=== PATIENT | female | born 1995 | race Caucasian/White ===

== ENCOUNTER 2021-09-25 16:45 | Observation (INO) | payer BC ==
[2021-09-25] MEDS ORDERED: Zosyn 3.375 GM Vial 3.375 GM in Sodium Chloride 100ML MINI-BAG PLUS 100 ML IV ONE (17:13)
[2021-09-25] MEDS ORDERED: MORPHINE SULFATE 4 MG INJ IV ONE (17:13)
[2021-09-25] MEDS ORDERED: Sodium Chloride 0.9% 1000 ML 1,000 ML IV STA (17:13)
[2021-09-25] MEDS ORDERED: Zofran 4 MG/2 ML VIAL IV ONE (17:13)
--- NOTE | 2021-09-25 17:16 | ERPHSYRPT ---
- History of Present Illness Time Seen by Provider: 09/25/21 17:13 Historian: patient Exam Limitations: no limitations Patient Subjective Stated Complaint: here for abd pain to right side since last night, had a ct scan today and dx with appenditisis. nausea and vomiting Triage Nursing Assessment: pt alert, resp easy, skin w/d/p. abd soft but tender, face mask in palce Physician History: 26 years old female presented in the ER with chief complaint of right lower quadrant pain since yesterday evening with associated multiple episodes of nonprojectile, nonbilious vomiting without hematemesis. She was seen at [facility] ER with a negative x-rays and later on patient primary care. CT abdomen pelvis with contrast which showed enlarged appendix with fluid around suggesting acute appendicitis and patient is recommended to be reported in the ER. Denies any fever or chills. Timing/Duration: yesterday, constant, gradual onset, worse Activities at Onset: activity, rest Quality: sharpness Abdominal Pain Onset Location: RUQ, RLQ, flank Severity of Pain-Max: moderate Severity of Pain-Current: moderate Modifying Factors: Worsens With: movement, palpation, position Associated Symptoms: nausea, vomiting Previous symptoms: no prior history Allergies/Adverse Reactions: No Known Drug Allergies Allergy (Unverified 09/25/21 17:02) Home Medications: ALPRAZolam [Alprazolam] 1 ea DAILY 09/25/21 [History] Desvenlafaxine Succinate [Desvenlafaxine Succinate ER] 1 ea DAILY 09/25/21 [History] Hx Pneumococcal Vaccination/Date Given: No Immunizations Up to Date: Yes Travel Risk - International Travel Have you traveled outside of the country in past 3 weeks: No - Coronavirus Screening Are you exhibiting any of the following symptoms?: No Close contact with a COVID-19 positive Pt in past 14-21 Days: No - Vaccine Status Have you recieved a Covid-19 vaccination: No - Review of Systems Constitutional: No Symptoms Eyes: No Symptoms Ears, Nose, & Throat: No Symptoms Respiratory: No Symptoms Cardiac: No Symptoms Abdominal/Gastrointestinal: Abdominal Pain, Nausea, Vomiting Genitourinary Symptoms: No Symptoms Musculoskeletal: No Symptoms Skin: No Symptoms Neurological: No Symptoms Psychological: Anxiety, Depression Endocrine: No Symptoms Hematologic/Lymphatic: No Symptoms Immunological/Allergic: No Symptoms - Past Medical History Pertinent Past Medical History: No - Past Surgical History Past Surgical History: No - Social History Smoking Status: Never smoker Exposure to second hand smoke: No Drug Use: none Patient Lives Alone: No - Female History Hx Last Menstrual Period: nov Hx Now: No - Nursing Vital Signs Nursing Vital Signs: Initial Vital Signs Temperature 97.2 F 09/25/21 17:02 Pulse Rate 71 09/25/21 17:02 Respiratory Rate 18 09/25/21 17:02 Blood Pressure 132/84 09/25/21 17:02 O2 Sat by Pulse Oximetry 98 09/25/21 17:02 Pain Scale Pain Intensity 10 - Physical Exam General Appearance: no apparent distress, alert Eye Exam: PERRL/EOMI Ears, Nose, Throat Exam: normal ENT inspection, TMs normal, pharynx normal, moist mucous membranes Neck Exam: normal inspection, supple, full range of motion Respiratory Exam: normal breath sounds, lungs clear Cardiovascular Exam: regular rate/rhythm, normal heart sounds Gastrointestinal/Abdomen Exam: soft, tenderness (Right lower quadrant/right flank and right upper quadrant), guarding (Right lower quadrant), rebound (Right lower quadrant ), other (Positive obturator sign), No normal bowel sounds Back Exam: normal inspection, normal range of motion Extremity Exam: normal inspection, normal range of motion Neurologic Exam: alert, oriented x 3, cooperative Skin Exam: normal color SpO2 Interpretation: normal SpO2: 98 O2 Delivery: Room Air Ordered Tests: Active Orders 24 hr Category Date Time Status IV Insertion STAT Care 09/25/21 17:13 Active NPO (ED) STAT Care 09/25/21 17:13 Active Medication Summary Generic Name Dose Route Start Last Admin Trade Name Freq PRN Reason Stop Dose Admin Sodium Chloride 1,000 mls @ 999 mls/hr 09/25/21 17:13 Sodium Chloride 0.9% 1000 Ml IV 09/25/21 18:13 .[id number] STA Discontinued Medications Generic Name Dose Route Start Last Admin Trade Name Freq PRN Reason Stop Dose Admin Piperacillin Sod/Tazobactam 100 mls @ 200 mls/hr 09/25/21 17:13 Sod 3.375 gm/ Sodium Chloride IV 09/25/21 17:42 STAT ONE Morphine Sulfate 4 mg 09/25/21 17:13 Morphine Sulfate 4 Mg/Ml Injection IV 09/25/21 17:14 STAT ONE Ondansetron HCl 4 mg 09/25/21 17:13 Ondansetron Hcl 4 Mg/2 Ml Vial IV 09/25/21 17:14 STAT ONE - Progress Progress: unchanged Progress Note: 09/25/21 17:50 26 years old is evaluated for right lower quadrant pain. I have obtained imaging and blood work from the [facility] which show a white count of 11, CT findings suggesting acute appendicitis. Discussed with Dr. Russell general surgeon on-call, patient would be kept n.p.o., given fluid bolus along with a dose of antibiotic and will be taken to the OR soon. Plan discussed with patient who understand and agrees with it. Discussed with .: Jorge Luis Will see patient in: hospital (observation) Counseled pt/family regarding: diagnosis - Departure Departure Disposition: Release to OR/SDC Clinical Impression: Acute appendicitis Qualifiers: Acute appendicitis type: with localized peritonitis Appendicitis gangrene presence: without gangrene Appendicitis perforation presence: without perforation Appendicitis abscess presence: unspecified whether abscess present Qualified Code(s): K35.30 - Acute appendicitis with localized peritonitis, without perforation or gangrene Condition: Stable Critical Care Time: No
[2021-09-25] MEDS ORDERED: Zofran 4 MG/2 ML VIAL ONE ×2 (17:52→19:42)
[2021-09-25] MEDS ORDERED: MORPHINE SULFATE 4 MG INJ ONE (17:52)
[2021-09-25] MEDS ORDERED: Zosyn 3.375 GM Vial IV ONE ×2 (17:52→23:12)
[2021-09-25] MEDS ORDERED: Sodium Chloride 100ML MINI-BAG PLUS 100 ML IV ONE ×2 (17:53→23:12)
[2021-09-25] MEDS ORDERED: Sodium Chloride 0.9% 1000 ML 1,000 ML ONE (17:53)
[2021-09-25] MEDS ORDERED: SUBLIMAZE 250 MCG/5 ML ONE (18:05)
[2021-09-25] MEDS ORDERED: DIPRIVAN 200 MG/20 ML IV ONE (18:05)
[2021-09-25] MEDS ORDERED: Zemuron 100 MG/10 ML ONE (18:05)
[2021-09-25] MEDS ORDERED: Versed 2 MG/2 ML Injection ONE (18:05)
[2021-09-25] MEDS ORDERED: Quelicin Fliptop 200 MG/10 ML ONE (18:05)
[2021-09-25] MEDS ORDERED: Sensorcaine 0.25% 10 ML ONE (18:23)
[2021-09-25 18:29] LABS: COVID AG -BINAX NOW RAPID TEST NEGATIVE (NEGATIVE)
[2021-09-25] MEDS ORDERED: Decadron 4 MG INJ ONE (19:14)
[2021-09-25] MEDS ORDERED: BRIDION 200MG/2ML IV ONE (19:42)
[2021-09-25] MEDS ORDERED: TORAdol 30 mg Injection ONE (19:42)
[2021-09-25] MEDS ORDERED: SUBLIMAZE 100 MCG/2 ML ONE (20:10)
[2021-09-25] MEDS ORDERED: Zofran 4 MG/2 ML VIAL IM PRN (20:45)
[2021-09-25] MEDS ORDERED: MORPHINE SULFATE 4 MG INJ IV PRN (20:51)
[2021-09-25] MEDS: Dextrose 5%-Lr IV Solution 1000 ML 1,000 ML IV SCH (21:24)
[2021-09-25] MEDS: NORCO 5/325 MG PO PRN (22:34)
[2021-09-25] MEDS: Zosyn 3.375 GM Vial 3.375 GM in Sodium Chloride 100ML MINI-BAG PLUS 100 ML IV SCH (23:18)
[2021-09-25 23:50] VITALS: O2SAT 99
[2021-09-26] MEDS ORDERED: Zosyn 3.375 GM Vial IV ONE (02:48)
[2021-09-26] MEDS ORDERED: Sodium Chloride 100ML MINI-BAG PLUS 100 ML IV ONE (02:48)
[2021-09-26] MEDS: NORCO 5/325 MG PO PRN ×3 (03:21→11:57)
[2021-09-26 03:57] VITALS: BP 100/56; PULSE 54
[2021-09-26] MEDS: Zosyn 3.375 GM Vial 3.375 GM in Sodium Chloride 100ML MINI-BAG PLUS 100 ML IV SCH ×2 (05:07→11:58)
[2021-09-26 05:55] LABS: Hematocrit 35.3 % (35-47); Hemoglobin 10.8 gm/dl (12.0-16.0); Mean Cell Volume 98.1 fl (78-100); Mean Corpuscular Hgb Concent. 30.6 g/dl (32-36); Mean Platelet Volume 10.4 fl (7.5-11.0); Platelet Count 159 K/mm3 (150-450); Red Cell Distribution Width 12.4 % (11.5-14.0); White Blood Count 9.9 K/mm3 (4.0-10.5)
[2021-09-26] MEDS ORDERED: TYLENOL 325 MG PO PRN (07:10)
[2021-09-26] MEDS ORDERED: Zofran 4 MG/2 ML VIAL IVIM PRN (07:15)
--- NOTE | 2021-09-26 08:57 | PCM.SSS ---
History of Present Illness - Chief Complaint Chief Complaint: ruptured appendix History of Present Illness: is a 26 year old female who presented to the ER last night after an outpatient CT scan showed acute appenditicits, she was in [facility] ER yesterday morning and released then worsened and her PCP ordered a CT scan. She developed pain in her right lower abdomen 2 nights ago, progressively worsened yesterday. Her appendix was ruptured in surgery, she is feeling much better this morning. She is tolerating small amount of bland diet, pain is well controlled, no flatus. - Review of Systems Constitutional: No Fever, No Chills Respiratory: No Cough, No Short Of Breath Cardiac: No Chest Pain, No Edema, No Syncope Abdominal/Gastrointestinal: Abdominal Pain, No Nausea, No Vomiting, No Diarrhea Genitourinary Symptoms: No Dysuria Skin: No Rash All Other Systems: Reviewed and Negative Medications & Allergies Home Medications: Home Medication List ALPRAZolam [Alprazolam] 1 ea DAILY 09/25/21 [History Confirmed 09/26/21] Desvenlafaxine Succinate [Desvenlafaxine Succinate ER] 1 ea DAILY 09/25/21 [History Confirmed 09/26/21] Allergies/Adverse Reactions: Allergies Allergy/AdvReac Type Severity Reaction Status Date / Time No Known Drug Allergies Allergy Verified 09/25/21 21:03 - Past Medical History Past Medical History: No - Female History Hx Last Menstrual Period: nov Are you now?: No - Past Surgical History Past Surgical History: No GI Surgical History: Appendectomy - Social History Smoking Status: Never smoker Exposure to second hand smoke: No Alcohol: Occasionally Drug Use: none - Physical Exam Vital Signs: Vital Signs - 24 hr Temp Pulse Resp BP Pulse Ox 09/26/21 03:10 97.7 F 54 L 16 100/56 99 09/25/21 23:00 98.1 F 69 18 110/63 99 09/25/21 22:00 98 F 68 18 108/66 98 09/25/21 21:30 97.8 F 68 18 108/63 98 09/25/21 21:00 97.5 F 65 18 112/60 100 09/25/21 20:45 97.5 F 64 18 112/58 100 09/25/21 18:39 132/84 98 09/25/21 17:51 98 09/25/21 17:02 97.2 F 71 18 132/84 98 General Appearance: no apparent distress, alert Neurologic Exam: alert, oriented x 3 Respiratory Exam: normal breath sounds, lungs clear, No respiratory distress Cardiovascular Exam: regular rate/rhythm, normal heart sounds, normal peripheral pulses Gastrointestinal/Abdomen Exam: soft, other (SAMARIA with scant serosang. fluid present, port sites are intact and well approximated) Extremity Exam: normal inspection, normal range of motion, pelvis stable Skin Exam: normal color, warm, dry, No rash Results - Labs Lab/Micro Results: Lab Results-Last 24 Hours 09/25/21 09/25/21 09/26/21 Range/Units 18:07 18:26 05:51 WBC 9.9 (4.0-10.5) K/mm3 RBC 3.60 L (4.1-5.4) M/mm3 Hgb 10.8 L (12.0-16.0) gm/dl Hct 35.3 (35-47) % MCV 98.1 (78-100) fl MCH 30.0 (26-32) pg MCHC 30.6 L (32-36) g/dl RDW 12.4 (11.5-14.0) % Plt Count 159 (150-450) K/mm3 MPV 10.4 (7.5-11.0) fl Serum , Qual NEGATIVE (Negative) SARS-CoV-2 Ag (Rapid) NEGATIVE (NEGATIVE) Assessment/Plan (1) Acute appendicitis with rupture Current Visit: Yes Status: Acute Assessment & Plan: on zosyn, tolerating diet. SAMARIA with scant output, patient stable, afebrile and wbc normal. Code(s): K35.32 - ACUTE APPENDICITIS WITH PERF AND LOC PERITONITIS, W/O [facility] Summary - Vitals & Intake/Output Vital Signs: Vital Signs Temperature 97.7 F 09/26/21 03:10 Pulse Rate 54 L 09/26/21 03:10 Respiratory Rate 16 09/26/21 03:10 Blood Pressure 100/56 09/26/21 03:10 O2 Sat by Pulse Oximetry 99 09/26/21 03:10 Intake & Output: Intake & Output 09/23/21 09/24/21 09/25/21 09/26/21 11:59 11:59 11:59 11:59 Intake Total 1037 Output Total 970 Balance 67 Weight 73.1 kg - Lab Result Diagrams: 09/26/21 05:51 Lab Results-Last 24 Hrs: Lab Results-Last 24 Hours 09/25/21 09/25/21 09/26/21 Range/Units 18:07 18:26 05:51 WBC 9.9 (4.0-10.5) K/mm3 RBC 3.60 L (4.1-5.4) M/mm3 Hgb 10.8 L (12.0-16.0) gm/dl Hct 35.3 (35-47) % MCV 98.1 (78-100) fl MCH 30.0 (26-32) pg MCHC 30.6 L (32-36) g/dl RDW 12.4 (11.5-14.0) % Plt Count 159 (150-450) K/mm3 MPV 10.4 (7.5-11.0) fl Serum , Qual NEGATIVE (Negative) SARS-CoV-2 Ag (Rapid) NEGATIVE (NEGATIVE) - Discharge Disposition: Home, Self-Care Condition: Stable Prescriptions: No Action Desvenlafaxine Succinate [Desvenlafaxine Succinate ER] 1 ea DAILY ALPRAZolam [Alprazolam] 1 ea DAILY Follow up with: JONAH SULLIVAN PA [Primary Care Provider] -
[2021-09-26] MEDS: Dextrose 5%-Lr IV Solution 1000 ML 1,000 ML IV SCH (11:25)
--- NOTE | 2021-09-26 11:26 | CONS ---
CONSULT DATE: 09/25/2021 REASON FOR CONSULT: Acute appendicitis. HISTORY: The patient is a 26-year-old female who came to the emergency room complaining of right lower quadrant abdominal pain. CT was positive for acute appendicitis and I was asked to see her in consultation for surgical evaluation and management. PAST MEDICAL HISTORY: Overall is unremarkable. She had a natural delivery x2. PAST SURGICAL HISTORY: Unremarkable. ALLERGIES: PENICILLIN. PHYSICAL EXAMINATION: She is alert and oriented. HEENT: Pupils are equal and normoreactive. NECK: Supple. COR: Regular rhythm. ABDOMEN: Tender in the right lower quadrant. EXTREMITIES: Within normal limits with no pedal edema. IMPRESSION: Acute appendicitis by clinical and radiological findings. The plan is to proceed with laparoscopic appendectomy possible open.
[2021-09-26] MEDS ORDERED: MEDICATION INTERVENTION PO SCH (11:30)
--- NOTE | 2021-09-26 11:35 | OP ---
SURGERY DATE/TIME: 09/25/20211902 PREOPERATIVE DIAGNOSIS: Acute appendicitis. POSTOPERATIVE DIAGNOSIS: Acute appendicitis with ruptured appendix. PROCEDURE: Laparoscopic appendectomy. SURGEON: Nam Brown M.D. ANESTHESIA: General. ESTIMATED BLOOD LOSS: Minimal. COMPLICATIONS: None. DESCRIPTION OF PROCEDURE AND FINDINGS: The patient is taken to the OR, placed on the operating table in supine position. The abdomen was prepped and draped in the usual sterile fashion. A small supraumbilical incision was made. The Veress needle was introduced. The abdomen was insufflated with CO2 and the trocar was placed using the Visiport. The camera was introduced and the remaining ports placed under direct laparoscopic vision. The appendix was found in the right lower quadrant adherent to the abdominal wall and this was swollen initially, quite attached to the abdominal wall. In order to mobilize the appendix, we were able to free up some of the adhesions to the abdominal wall. During the process of mobilization, some purulent material popped out of the appendix which was approximately 1.5 cm in diameter by CT findings but we were able to staple the mesoappendix and then staple it again at the base of the appendix. The appendix was introduced into EndoCatch bag and then removed from the 12 mm trocar site without difficulty. The right lower quadrant was then irrigated and SAMARIA drain was left in the right lower quadrant. The pneumoperitoneum was then released and the trocars removed. The 12 mm trocar site was closed with 0 Vicryl for the fascia and 4-0 Vicryl to close the skin edges in subcuticular fashion. Dressing was applied. The SAMARIA drain was secured in place with 0 PDS suture. Dressing was then applied. The patient tolerated this procedure well and was taken back to the recovery area in overall stable condition.
[2021-09-27] MEDS ORDERED: DESVENLAFAXINE SUCCINATE 25 MG PO SCH (10:00)
== END 2021-09-26 14:30 | disposition home or self-care (01) ==
LOC: ED 16:45 → MED SURG 20:45
PROVIDERS: ADMIT Family Medicine; ATTEND Family Medicine
DX: K35.32 Acute appendicitis with perforation, localized peritonitis, and gangrene, without abscess (principal); R10.31 Right lower quadrant pain; R11.2 Nausea with vomiting, unspecified; Z79.899 Other long term (current) drug therapy; Z20.828 Contact with and (suspected) exposure to other viral communicable diseases
CPT/HCPCS: 36000; 36415; 44970; 81025; 85027; 96374; 96375; 99000; 99284; G0378; 99140; J0330; J1100; J1885; J2250; J2270; J2405; J2704; J3010; A9270-GY